=== PATIENT | female | born 1940 | race Caucasian/White ===

== ENCOUNTER 2020-10-18 12:43 | Inpatient (IN) | payer BC, SELFPAY ==
[~2020-10-18] VITALS: Ht 154.9 cm; Wt 86.2 kg
[2020-10-18 12:43] VITALS: BP_SYST 108
--- NOTE | 2020-10-18 12:45 | NUR ---
Patient to ER bed 08 to gown for evaluation. Side rails up.
--- NOTE | 2020-10-18 12:50 | NUR ---
Pt brought by family, A&Ox4, pt presents to ER with SOB after exposure to covid, pt O2 86 % roomair, skin pink and warm, cap refill <3. respirations even and unlabored.
--- NOTE | 2020-10-18 12:55 | NUR ---
Dr Zepeda evaluating patient at bedside
[2020-10-18 13:48] LABS: BASOPHILS % (AUTO) 0.3 % (0.0-2.0); HEMATOCRIT 40.5 % (36-48); LYMPHOCYTES # (AUTO) 0.7 K/uL (1.0-5.5); MEAN CORPUSCULAR HEMOGLOBIN 33 pg (27-31); MEAN CORPUSCULAR HGB CONC 35 % (32-36); MEAN CORPUSCULAR VOLUME 94 fL (79.0-98.0); MONOCYTES # (AUTO) 0.6 K/uL (0.0-1.0); MONOCYTES % (AUTO) 10.2 % (1.7-9.3); NEUTROPHILS # (AUTO) 4.3 K/uL (1.8-7.7); NEUTROPHILS % (AUTO) 76.5 % (40.0-70.0); PLATELET COUNT (AUTO) 124 K/uL (130-430); RED BLOOD CELL COUNT(AUTO) 4.29 MIL/uL (4.2-6.2); RED CELL DISTRIBUTION WIDTH 13.1 % (9.0-15.0); WHITE BLOOD COUNT (AUTO) 5.7 K/uL (4.8-10.8)
[2020-10-18 13:49] LABS: ALANINE AMINOTRANSFERASE 22 U/L (12-78); ALBUMIN 2.9 g/dL (3.4-4.8); ASPARTATE AMINOTRANSFERASE 28 U/L (10-37); CALCIUM 9.3 mg/dL (8.4-11.0); CHLORIDE 99 mmol/L (98-107); CREATININE 0.74 mg/dL (0.55-1.30); GLUCOSE 109 mg/dL (70-99); POTASSIUM 3.3 mmol/L (3.5-5.1); SODIUM SERUM 135 mmol/L (136-145); TOTAL BILIRUBIN 0.7 mg/dL (0.0-1.0); UREA NITROGEN, BLOOD 24 mg/dL (8-21)
[2020-10-18 13:55] LABS: ANION GAP 7 (5-15)
[2020-10-18 14:42] LABS: BILIRUBIN,URINE NEGATIVE (NEGATIVE); BLOOD, URINE NEGATIVE (NEGATIVE); COLOR,URINE YELLOW (YELLOW); GLUCOSE,URINE NEGATIVE (NEGATIVE); KETONES,URINE 2+ (NEGATIVE); LEUKOCYTE ESTERASE ,URINE NEGATIVE (NEGATIVE); NITRITE, URINE POSITIVE (NEGATIVE); PROTEIN URINE NEGATIVE (NEGATIVE)
[2020-10-18 14:45] LABS: CLARITY/URINE HAZY (CLEAR)
[2020-10-18] MEDS ORDERED: DEXAMETHASONE SOD PHOSPHATE 10 MG/ML VIAL IVP ONE (14:45)
[2020-10-18] MEDS ORDERED: ALBUTEROL SULFATE 0.083% 2.5 MG/3 ML VIAL.NEB INH PRN (14:45)
[2020-10-18 15:17] LABS: BACTERIA,URINE MANY /HPF (None Seen); RBC,URINE 0-3 /HPF (0-3)
--- NOTE | 2020-10-18 15:30 | NUR ---
Pt A&Ox4, VSS, respirations even and unlabored, cap refill <3 , O2 92 % 4 L NC
[2020-10-18] MEDS ORDERED: AZITHROMYCIN 500 MG in NS 250 ML IV ONE (16:15)
[2020-10-18] MEDS ORDERED: ENOXAPARIN SODIUM 30 MG/0.3 ML SYRINGE SUBCUT ONE (16:15)
--- NOTE | 2020-10-18 16:28 | NUR ---
Dr Oneil evaluating patient at bedside
[2020-10-18] MEDS ORDERED: AZITHROMYCIN 500 MG/VIAL (ZITHROMAX) IV ONE (16:39)
[2020-10-18] MEDS ORDERED: ENOXAPARIN SODIUM 30 MG/0.3 ML SYRINGE SUBCUT SCH (17:45)
--- NOTE | 2020-10-18 17:50 | NUR ---
Pt ambulated to [facility] pt had one bowell movement at this time, watery brown stool, will cont to monitor
[2020-10-18] MEDS: cefTRIAXone 1 GM IVPB PREMIX 50 ML IV SCH (18:22)
--- NOTE | 2020-10-18 18:30 | NUR ---
Pt eating dinner at this time, well tolerated
--- NOTE | 2020-10-18 19:04 | NUR ---
CONSULTATION PAGED/CALLED Reason for Consultation: [] COVID PNA Person Who was Notified: [] SOCORRO Consulting Physician: [] DR SALDIVAR Paperboard Machine Operator Specialty: [] ID Ordering Physician: [] DR GARCIA
--- NOTE | 2020-10-18 19:07 | NUR ---
CONSULTATION PAGED/CALLED Reason for Consultation: [] COVID PNA Person Who was Notified: [] DR LLANOS Consulting Physician: [] DR LLANOS Cap And Hat Production Supervisor Specialty: [] PULMO Ordering Physician: [] DR GARCIA
--- NOTE | 2020-10-18 19:25 | NUR ---
Pt just finished dinner tray, VSS no s/s of acute distress Resting on gurney rails up. Pt states " she's awaiting bed assignment "
--- NOTE | 2020-10-18 19:44 | NUR ---
SPOKE TO DR. SCHWAB REGARDING LOVENOX. OK TO HOLD LOVENOX 40 MG AND TO START IN AM. ORDER PLACED IN SYSTEM
[2020-10-18 20:00] VITALS: BP_SYST 112
--- NOTE | 2020-10-18 20:00 | NUR ---
Patient will be admitted to care of Dr. Caraballo. Admitted to Tele unit. Will go to room 134A. Belongings list completed. Complete and up to date summary report printed. SBAR report to be given at bedside with opportunity for questions.
--- NOTE | 2020-10-18 20:00 | NUR ---
ADMIT NOTE Received pt from ER to the floor with a diagnosis of Covid PNA. Admission process initiated. patient oriented to pain management, safety and call light-teach back done.
--- NOTE | 2020-10-18 20:00 | NUR ---
Transfer to Tele via ACLS protocol. Licensed nurse present. IV present no signs or symptoms of infiltration.
[2020-10-18 20:05] VITALS: BP_SYST 123
[2020-10-18] MEDS: ASCORBIC ACID 500 MG TABLET PO SCH (21:22)
[2020-10-18] MEDS: DOXYCYCLINE HYCLATE 100 MG CAPSULE PO SCH (21:22)
[2020-10-19 00:26] VITALS: BP_SYST 122
[2020-10-19 01:01] VITALS: BP_SYST 124
--- NOTE | 2020-10-19 02:37 | NUR ---
Maritza on telemonitor radio electronics technician informed patient is maritza; HR 40's, she has been maritza HR 50's. Presently patient is sleeping, no distress. Momentarily awakened and she denies pain. wctm
[2020-10-19 07:26] LABS: ALANINE AMINOTRANSFERASE 27 U/L (12-78); ALBUMIN 2.6 g/dL (3.4-4.8); ANION GAP 11 (5-15); ASPARTATE AMINOTRANSFERASE 37 U/L (10-37); CALCIUM 9.4 mg/dL (8.4-11.0); CHLORIDE 97 mmol/L (98-107); CREATININE 0.61 mg/dL (0.55-1.30); GLUCOSE 130 mg/dL (70-99); POTASSIUM 3.4 mmol/L (3.5-5.1); SODIUM SERUM 133 mmol/L (136-145); TOTAL BILIRUBIN 0.5 mg/dL (0.0-1.0); UREA NITROGEN, BLOOD 19 mg/dL (8-21)
[2020-10-19 08:00] VITALS: BP_SYST 136
--- NOTE | 2020-10-19 08:00 | NUR ---
awake,alert,bradycardia hr 55,no c/o pain or discomfort.O2 sat 84% on room air,applied on O2 4L/NC sat up to 93%,needs attended,call light & personal items within pt reach,safety maintained.
[2020-10-19] MEDS: BUDESONIDE 0.5 MG/2 ML AMPUL.NEB INH SCH (08:51)
[2020-10-19] MEDS ORDERED: ENOXAPARIN SODIUM 30 MG/0.3 ML SYRINGE SUBCUT SCH (09:00)
--- NOTE | 2020-10-19 10:00 | NUR ---
give am meds due,pt is compliant of meds.continue droplet isolation protocol due to covid positive.
[2020-10-19] MEDS: ENOXAPARIN SODIUM 40 MG/0.4 ML SYRINGE SUBCUT SCH ×2 (10:31→20:49)
[2020-10-19] MEDS: CHOLECALCIFEROL (VITAMIN D3) 5,000 UNIT TABLET PO SCH (11:06)
[2020-10-19] MEDS: ASCORBIC ACID 500 MG TABLET PO SCH ×2 (11:06→20:48)
[2020-10-19] MEDS: DOXYCYCLINE HYCLATE 100 MG CAPSULE PO SCH ×2 (11:06→20:49)
[2020-10-19] MEDS: DEXAMETHASONE SOD PHOSPHATE 10 MG/ML VIAL IVP SCH (11:07)
[2020-10-19 12:00] VITALS: BP_SYST 136
--- NOTE | 2020-10-19 12:00 | NUR ---
vss,pt wearing O2 4L/NC,sat 93%,respirates even and unlabored.continue to monitor pt.
[2020-10-19 16:00] VITALS: BP_SYST 127
--- NOTE | 2020-10-19 16:00 | NUR ---
vss,pt resting well in bed,no significant changes in status.
--- NOTE | 2020-10-19 18:00 | NUR ---
give IV antibiotic due,no adverse reactions observed,IV site in left hand patent and intact.
[2020-10-19] MEDS: cefTRIAXone 1 GM IVPB PREMIX 50 ML IV SCH (18:02)
--- NOTE | 2020-10-19 19:30 | NUR ---
Opening note Received SBAR report from PARTHA Pereira. Patient resting in bed, eyes closed. No distress and nonlabored breathing on 4L NC. Side rails up 2x, bed alarm on and call light w/in reach.
[2020-10-19 20:15] VITALS: BP_SYST 112
[2020-10-19] MEDS: ALBUTEROL MDI INHALATION 8 GM INH INH PRN (21:33)
--- NOTE | 2020-10-19 21:33 | NUR ---
Meds/Patient care Patient was given due medications. Reviewed side effects and she verbalized understanding. She was assisted to restroom and returned to bed. She was provided with new sheet, gown and disposable underwear. Administered MDI breathing treatment. Resting in comfortable position and has no further needs.
[2020-10-20 00:25] VITALS: BP_SYST 108
--- NOTE | 2020-10-20 00:25 | NUR ---
V/S VSS, no distress. Patient denies pain. Presently IV is SL. Safety and isolation precautions in place.
--- NOTE | 2020-10-20 03:05 | NUR ---
sleeping Patient sleeping and momentarily awakened for battery replacement on tele box.
[2020-10-20 06:37] LABS: BASOPHILS % (AUTO) 0.1 % (0.0-2.0); HEMATOCRIT 41.3 % (36-48); HEMOGLOBIN 14.1 g/dL (12.0-16.0); LYMPHOCYTES # (AUTO) 0.9 K/uL (1.0-5.5); LYMPHOCYTES % (AUTO) 14.5 % (20.5-51.5); MEAN CORPUSCULAR HEMOGLOBIN 32 pg (27-31); MEAN CORPUSCULAR HGB CONC 34 % (32-36); MEAN CORPUSCULAR VOLUME 95 fL (79.0-98.0); MONOCYTES # (AUTO) 0.6 K/uL (0.0-1.0); MONOCYTES % (AUTO) 9.4 % (1.7-9.3); NEUTROPHILS # (AUTO) 4.9 K/uL (1.8-7.7); PLATELET COUNT (AUTO) 143 K/uL (130-430); RED BLOOD CELL COUNT(AUTO) 4.36 MIL/uL (4.2-6.2); RED CELL DISTRIBUTION WIDTH 12.9 % (9.0-15.0); WHITE BLOOD COUNT (AUTO) 6.4 K/uL (4.8-10.8)
[2020-10-20 07:14] LABS: ALANINE AMINOTRANSFERASE 27 U/L (12-78); ALBUMIN 2.5 g/dL (3.4-4.8); ANION GAP 9 (5-15); ASPARTATE AMINOTRANSFERASE 25 U/L (10-37); CALCIUM 9.4 mg/dL (8.4-11.0); CHLORIDE 103 mmol/L (98-107); CREATININE 0.64 mg/dL (0.55-1.30); GLUCOSE 131 mg/dL (70-99); POTASSIUM 3.5 mmol/L (3.5-5.1); SODIUM SERUM 139 mmol/L (136-145); TOTAL BILIRUBIN 0.3 mg/dL (0.0-1.0); UREA NITROGEN, BLOOD 24 mg/dL (8-21)
[2020-10-20 08:00] VITALS: BP_SYST 109
--- NOTE | 2020-10-20 08:00 | NUR ---
NURSE NOTES REPORT OBTAINED FROM NIGHT NURSE DAYTON AT 0710 AND THIS NURSE ASSUMED CARE OF PATIENT. IN DROPLET ISOLATION FROM COVID. VSS. AFEB. NO C/O PAIN OR DISCOMFORT.
[2020-10-20 08:38] LABS: ERYTHROCYTE SEDIMENTATION RATE 56 MM/HR (0-20)
[2020-10-20] MEDS: BUDESONIDE 0.5 MG/2 ML AMPUL.NEB INH SCH (09:00)
[2020-10-20] MEDS: DEXAMETHASONE SOD PHOSPHATE 10 MG/ML VIAL IVP SCH (09:52)
[2020-10-20] MEDS: DOXYCYCLINE HYCLATE 100 MG CAPSULE PO SCH ×2 (09:52→20:26)
[2020-10-20] MEDS: ASCORBIC ACID 500 MG TABLET PO SCH ×2 (09:52→20:26)
[2020-10-20] MEDS: CHOLECALCIFEROL (VITAMIN D3) 5,000 UNIT TABLET PO SCH (09:53)
[2020-10-20] MEDS: ENOXAPARIN SODIUM 40 MG/0.4 ML SYRINGE SUBCUT SCH ×2 (10:00→20:27)
--- NOTE | 2020-10-20 10:58 | NUR ---
Nutrition Update Volodymyr Scale 18 noted. Pt admitted for COVID pneumonia. Diet: regular BMI: 36 kg/m2 RD to follow per nutrition care standards.
[2020-10-20] MEDS ORDERED: DILTIAZEM HCL 25 MG/5 ML VIAL IVP ONE (11:00)
[2020-10-20 11:36] LABS: C-REACTIVE PROTEIN QUANT 10.2 mg/dL (0-0.5)
[2020-10-20 12:00] VITALS: BP_SYST 115; BP_SYST 97
--- NOTE | 2020-10-20 12:00 | NUR ---
NURSE CARE HR JUDSON. NO C/O PAIN, DISTRESS,OR DIZZINESS. MEALS TAKEN 50%. SLEEPING THRU THE DAY.
[2020-10-20 16:00] VITALS: BP_SYST 110
[2020-10-20] MEDS: cefTRIAXone 1 GM IVPB PREMIX 50 ML IV SCH (18:00)
--- NOTE | 2020-10-20 18:00 | NUR ---
NURSE NOTES PATIENT RECEIVED IVPB ROCEPHIN AND REMDESMIR THRU SL IN L HAND. NO REDNESS OR SWELLING.
--- NOTE | 2020-10-20 19:15 | NUR ---
NURSE REPORT AND ENDORSEMENT REPORT GIVEN TO NIGHT NURSE PAN TO ASSUMED CARE OF PATIENT. STABLE CONDITION. SBAR GIVEN TO HER AND ALL QUESTIONS ASKED.
--- NOTE | 2020-10-20 19:30 | NUR ---
Opening note Received SBAR report from PARTHA Hay. Patient resting in bed, awake. No distress and nonlabored breathing on 4L NC. Side rails up 2x, bed alarm on and call light w/in reach.
[2020-10-20 20:00] VITALS: BP_SYST 111
--- NOTE | 2020-10-20 20:26 | NUR ---
Meds/Patient care Patient was given due medications. Reviewed side effects and she verbalized understanding.
--- NOTE | 2020-10-20 20:40 | NUR ---
MDI RT at bedside for tx
[2020-10-20] MEDS: ALBUTEROL MDI INHALATION 8 GM INH INH PRN (20:51)
[2020-10-21 00:20] VITALS: BP_SYST 108
--- NOTE | 2020-10-21 00:30 | NUR ---
V/S Sleeping and momentarily awakened for V/S. She ambulated to restroom and returned to bed, denies pain.
--- NOTE | 2020-10-21 03:10 | NUR ---
Bradycardia Patient is sinus maritza, and groundwater monitoring technician reports HR has been dropping to 40's and was 38/39 a couple times. Patient assessed and she denies pain or dizziness. She was asleep and has no distress, wctm
[2020-10-21 07:00] VITALS: BP_SYST 90
[2020-10-21 07:18] LABS: BASOPHILS % (AUTO) 0.2 % (0.0-2.0); HEMOGLOBIN 14.1 g/dL (12.0-16.0); LYMPHOCYTES # (AUTO) 1.1 K/uL (1.0-5.5); LYMPHOCYTES % (AUTO) 15.3 % (20.5-51.5); MEAN CORPUSCULAR HEMOGLOBIN 32 pg (27-31); MEAN CORPUSCULAR HGB CONC 34 % (32-36); MEAN CORPUSCULAR VOLUME 94 fL (79.0-98.0); MONOCYTES # (AUTO) 0.6 K/uL (0.0-1.0); MONOCYTES % (AUTO) 9.2 % (1.7-9.3); NEUTROPHILS # (AUTO) 5.2 K/uL (1.8-7.7); NEUTROPHILS % (AUTO) 75.3 % (40.0-70.0); PLATELET COUNT (AUTO) 157 K/uL (130-430); RED BLOOD CELL COUNT(AUTO) 4.35 MIL/uL (4.2-6.2); RED CELL DISTRIBUTION WIDTH 12.8 % (9.0-15.0); WHITE BLOOD COUNT (AUTO) 6.9 K/uL (4.8-10.8)
[2020-10-21 07:49] LABS: ALANINE AMINOTRANSFERASE 19 U/L (12-78); ALBUMIN 2.4 g/dL (3.4-4.8); ANION GAP 9 (5-15); ASPARTATE AMINOTRANSFERASE 20 U/L (10-37); C-REACTIVE PROTEIN QUANT 5.4 mg/dL (0-0.5); CALCIUM 9.5 mg/dL (8.4-11.0); CHLORIDE 101 mmol/L (98-107); CREATININE 0.59 mg/dL (0.55-1.30); GLUCOSE 126 mg/dL (70-99); POTASSIUM 3.3 mmol/L (3.5-5.1); SODIUM SERUM 136 mmol/L (136-145); TOTAL BILIRUBIN 0.4 mg/dL (0.0-1.0); UREA NITROGEN, BLOOD 22 mg/dL (8-21)
--- NOTE | 2020-10-21 08:00 | NUR ---
NURSE REPORT REPORT OBTAINED FROM DAYTON AT 0730 AND THIS NURSE ASSUMED OF PATIENT. RECEIVED PATIENT ASLEEP AND WITHOUT ANY SXS OF PAIN OR DISTRESS. ON DROPLET PRECAUTIONS FOR COVID. PATIENT STATED SHE FEEL FIND. BUT O2 SAT ON RA 85%. INSTRUCTED THAT SHE NEEDS TO WEAR O2. INCREASED TO 91%.
[2020-10-21] MEDS: BUDESONIDE 0.5 MG/2 ML AMPUL.NEB INH SCH ×2 (09:00→19:50)
[2020-10-21] MEDS: ALBUTEROL MDI INHALATION 8 GM INH INH PRN (09:25)
[2020-10-21] MEDS: ASCORBIC ACID 500 MG TABLET PO SCH ×2 (09:28→22:07)
[2020-10-21] MEDS: DOXYCYCLINE HYCLATE 100 MG CAPSULE PO SCH ×2 (09:29→22:07)
[2020-10-21] MEDS: DEXAMETHASONE SOD PHOSPHATE 10 MG/ML VIAL IVP SCH (09:29)
[2020-10-21] MEDS: CHOLECALCIFEROL (VITAMIN D3) 5,000 UNIT TABLET PO SCH (09:29)
[2020-10-21] MEDS: ENOXAPARIN SODIUM 40 MG/0.4 ML SYRINGE SUBCUT SCH ×2 (09:31→22:08)
[2020-10-21 10:02] LABS: ERYTHROCYTE SEDIMENTATION RATE 46 MM/HR (0-20)
[2020-10-21 11:03] VITALS: BP_SYST 108
--- NOTE | 2020-10-21 11:45 | NUR ---
Dietitian Recommendations * Recommend continue regular diet (keep liberal to promote PO intake). * Recommend: add Glucerna TID. (ONS will provide additional 660 kcal and 30gm protein daily). * Encourage PO intake. * Nursing: please document all PO intake. Please see Nutritional Assessment for details. HELENA GRIJALVA
[2020-10-21 12:00] VITALS: BP_SYST 116
--- NOTE | 2020-10-21 12:00 | NUR ---
NURSE CARE VS TAKEN. AFEB. HR 51. NO C/O PAIN, DISCOMFORT OR DIZZINESS. MEALS TAKEN 50%. GOT UP TO BATHROOM BY HERSELF AND SELF CARE DONE.
[2020-10-21 16:00] VITALS: BP_SYST 137
[2020-10-21] MEDS: cefTRIAXone 1 GM IVPB PREMIX 50 ML IV SCH (17:32)
--- NOTE | 2020-10-21 18:00 | NUR ---
NURSE CARE VS TAKEN. HR 51. NO C/O PAIN, DISCOMFORT OR DIZZINESS. IVPB REMDESIVIR AND ROCEPHIN GIVEN. SL IN L HAND 20 G AND R FINGER 22 G. NO REDNESS OR SWELLING.
--- NOTE | 2020-10-21 19:10 | NUR ---
NURSE REPORT AND ENDORSEMENT REPORT GIVEN TO NIGHT NURSE MAGALI TO ASSUME CARE OF PATIENT. SBAR GIVEN AND ALL QUESTIONS ASKED. IVPB REMDISIMIR INFUSING AND NEEDS ROCEPHIN TO BE STARTED.
--- NOTE | 2020-10-21 19:30 | NUR ---
Opening note Received SBAR report from dayshift RN. Patient resting in bed, eyes closed. No distress and nonlabored breathing on 4L NC. Side rails up 2x, bed alarm on and call light w/in reach. Will monitor.
[2020-10-21 20:00] VITALS: BP_SYST 128
[2020-10-22 00:15] VITALS: BP_SYST 148
--- NOTE | 2020-10-22 07:10 | NUR ---
CLOSING NOTE PT RESTING IN BED, NO S/S OF DISTRESS, BREATHING UNLABORED TO 4 L. NO REPORT OF PAIN. SAFETY AND ISOLATION PRECAUTIONS MAINTAINED. WILL ENDORSE TO DAY SHIFT RN.
[2020-10-22 08:00] VITALS: BP_SYST 132
--- NOTE | 2020-10-22 08:00 | NUR ---
Initial Note Patient sitting up on side of bed, eating breakfast. Awake and oriented x 4. No acute distress. Saturating 90% on 5 L O2 via N/C. Pain 2/10 reported in mid-back, refuses intervention for pain at this time. Patient able to ambulate and make needs known. Instructed on fall safety precautions. Oriented to and placed call light in reach, encouraged to call. Bed locked in lowest position.
[2020-10-22] MEDS: BUDESONIDE 0.5 MG/2 ML AMPUL.NEB INH SCH ×2 (09:00→21:00)
--- NOTE | 2020-10-22 09:00 | NUR ---
Notes Low lab value potassium noted. Paged Dr. Caraballo.
[2020-10-22 09:32] LABS: ALANINE AMINOTRANSFERASE 24 U/L (12-78); ALBUMIN 2.6 g/dL (3.4-4.8); ANION GAP 8 (5-15); ASPARTATE AMINOTRANSFERASE 17 U/L (10-37); CALCIUM 9.2 mg/dL (8.4-11.0); CHLORIDE 101 mmol/L (98-107); CREATININE 0.61 mg/dL (0.55-1.30); GLUCOSE 163 mg/dL (70-99); POTASSIUM 3.2 mmol/L (3.5-5.1); SODIUM SERUM 137 mmol/L (136-145); TOTAL BILIRUBIN 0.5 mg/dL (0.0-1.0); UREA NITROGEN, BLOOD 21 mg/dL (8-21)
[2020-10-22] MEDS: DEXAMETHASONE SOD PHOSPHATE 10 MG/ML VIAL IVP SCH (09:32)
[2020-10-22] MEDS: ASCORBIC ACID 500 MG TABLET PO SCH ×2 (09:32→21:34)
[2020-10-22] MEDS: DOXYCYCLINE HYCLATE 100 MG CAPSULE PO SCH ×2 (09:33→21:34)
[2020-10-22] MEDS: CHOLECALCIFEROL (VITAMIN D3) 5,000 UNIT TABLET PO SCH (09:33)
[2020-10-22] MEDS: ENOXAPARIN SODIUM 40 MG/0.4 ML SYRINGE SUBCUT SCH ×2 (09:35→21:33)
--- NOTE | 2020-10-22 09:50 | NUR ---
MD Rounds Dr. Caraballo notified of low potassium level.
--- NOTE | 2020-10-22 10:00 | NUR ---
HIGH ALERT NOTE: Angie Caraballo reached at : identified within the medical roster to verify physician authenticity.
[2020-10-22] MEDS ORDERED: POTASSIUM CHLORIDE 20 MEQ TAB.PRT.SR PO ONE (10:30)
--- NOTE | 2020-10-22 12:00 | NUR ---
Notes Assisted patient with ambulating to restroom. Patient able to ambulate with minimal assist out of bed. No distress or pain reported. Assisted patient back into bed and placed call light in reach. Bed in lowest position.
[2020-10-22 12:02] VITALS: BP_SYST 155
--- NOTE | 2020-10-22 12:10 | NUR ---
MD Rounds Dr. Alvarez at bedside to visit patient.
[2020-10-22] MEDS: CEFEPIME 1 GM in D5W 50 ML IV SCH ×2 (14:24→21:32)
[2020-10-22 16:01] VITALS: BP_SYST 144
--- NOTE | 2020-10-22 16:15 | NUR ---
Notes Patient educated on use of incentive spirometer. Patient verbalized understanding and demonstrated use. Assisted with ambulation to restroom and back into bed. Safety measures implemented. Call light in reach, bed in lowest position. Encouraged to call as needed.
--- NOTE | 2020-10-22 18:54 | NUR ---
Closing Note Patient sitting up in bed eating dinner. No distress or pain noted. O2 at 5 L via N/C, saturating 92%. Call light left in reach, bed in lowest position. Patient receiving bag 4/4 of Remdesivir. Will endorse to night nurse.
[2020-10-22 20:00] VITALS: BP_SYST 146
[2020-10-23] VITALS: BP_SYST 128
--- NOTE | 2020-10-23 02:11 | NUR ---
Patient in bed. No acute distress noted. No complaint of pain or discomfort. Will continue to monitor.
[2020-10-23] MEDS: BUDESONIDE 0.5 MG/2 ML AMPUL.NEB INH SCH (08:28)
[2020-10-23 09:00] VITALS: BP_SYST 140
[2020-10-23] MEDS: CEFEPIME 1 GM in D5W 50 ML IV SCH ×2 (09:00→22:07)
[2020-10-23] MEDS: ENOXAPARIN SODIUM 40 MG/0.4 ML SYRINGE SUBCUT SCH ×2 (09:45→20:29)
[2020-10-23] MEDS: DOXYCYCLINE HYCLATE 100 MG CAPSULE PO SCH ×2 (09:46→20:30)
[2020-10-23] MEDS: DEXAMETHASONE SOD PHOSPHATE 10 MG/ML VIAL IVP SCH (09:46)
[2020-10-23] MEDS: ASCORBIC ACID 500 MG TABLET PO SCH ×2 (09:47→20:29)
[2020-10-23] MEDS: CHOLECALCIFEROL (VITAMIN D3) 5,000 UNIT TABLET PO SCH (09:47)
[2020-10-23 15:13] VITALS: BP_SYST 150
[2020-10-23 17:00] VITALS: BP_SYST 138
[2020-10-23 20:00] VITALS: BP_SYST 139
--- NOTE | 2020-10-23 21:00 | NUR ---
2100 IV ANTIBIOTIC YET TO BE GIVEN, PENDING PLACEMENT OF MIDLINE.
[2020-10-23] MEDS: ALBUTEROL MDI INHALATION 8 GM INH INH PRN (21:12)
--- NOTE | 2020-10-23 22:07 | NUR ---
IV CEFEPIME WAS GIVEN IV VIA HUNTER MIDLINE, UTILIZING NEW IV TUBINGS. MIDLINE SITE DRESSING IS DRY AND INTACT.
[2020-10-24] VITALS: BP_SYST 119
--- NOTE | 2020-10-24 06:38 | NUR ---
PT IS RESTING QUIETLY IN BED WITHOUT ANY ACUTE DISTRESS NOTED. ALL PT'S NEEDS WERE ATTENDED TO. WILL ENDORSE TO DAY SHIFT NURSE.
[2020-10-24 08:00] VITALS: BP_SYST 134
--- NOTE | 2020-10-24 08:00 | NUR ---
OPENING NOTES AWAKE, ALERT AND ORIENTED. ON 5 LITERS OF OXYGEN VIA NASAL CANNULA. NO SIGN OF DISTRESS. PICC LINE ON RIGHT UPPER ARM INTACT AND PATENT. FALL AND SAFETY CHECKS IN PLACE. CALL LIGHT WITHIN REACH. WILL MONITOR.
[2020-10-24] MEDS: BUDESONIDE 0.5 MG/2 ML AMPUL.NEB INH SCH (08:44)
[2020-10-24] MEDS: DEXAMETHASONE SOD PHOSPHATE 10 MG/ML VIAL IVP SCH (09:35)
[2020-10-24] MEDS: DOXYCYCLINE HYCLATE 100 MG CAPSULE PO SCH ×2 (09:35→22:22)
[2020-10-24] MEDS: ASCORBIC ACID 500 MG TABLET PO SCH ×2 (09:35→22:22)
[2020-10-24] MEDS: CHOLECALCIFEROL (VITAMIN D3) 5,000 UNIT TABLET PO SCH (09:35)
[2020-10-24] MEDS: CEFEPIME 1 GM in D5W 50 ML IV SCH ×2 (09:36→22:23)
[2020-10-24] MEDS: ENOXAPARIN SODIUM 40 MG/0.4 ML SYRINGE SUBCUT SCH ×2 (09:39→22:23)
--- NOTE | 2020-10-24 09:45 | NUR ---
MED PASS TOOK MEDICATIONS WELL. NO COMPLAINS. SAFETY CHECKS DONE. WILL MONITOR.
[2020-10-24 10:20] LABS: BASOPHILS % (AUTO) 0.3 % (0.0-2.0); EOSINOPHILS # (AUTO) 0.1 K/uL (0.0-0.4); EOSINOPHILS % (AUTO) 0.8 % (0.0-4.0); HEMATOCRIT 41.5 % (36-48); HEMOGLOBIN 14.3 g/dL (12.0-16.0); LYMPHOCYTES # (AUTO) 1.5 K/uL (1.0-5.5); LYMPHOCYTES % (AUTO) 16.7 % (20.5-51.5); MEAN CORPUSCULAR HEMOGLOBIN 33 pg (27-31); MEAN CORPUSCULAR HGB CONC 35 % (32-36); MEAN CORPUSCULAR VOLUME 94 fL (79.0-98.0); MONOCYTES # (AUTO) 0.8 K/uL (0.0-1.0); NEUTROPHILS # (AUTO) 6.5 K/uL (1.8-7.7); NEUTROPHILS % (AUTO) 73.2 % (40.0-70.0); PLATELET COUNT (AUTO) 216 K/uL (130-430); WHITE BLOOD COUNT (AUTO) 8.8 K/uL (4.8-10.8)
[2020-10-24 10:34] LABS: ANION GAP 8 (5-15); CALCIUM 9.2 mg/dL (8.4-11.0); CHLORIDE 104 mmol/L (98-107); CREATININE 0.96 mg/dL (0.55-1.30); GLUCOSE 153 mg/dL (70-99); POTASSIUM 3.2 mmol/L (3.5-5.1); SODIUM SERUM 138 mmol/L (136-145); UREA NITROGEN, BLOOD 19 mg/dL (8-21)
[2020-10-24 10:41] LABS: ALANINE AMINOTRANSFERASE 24 U/L (12-78); ALBUMIN 2.6 g/dL (3.4-4.8); ASPARTATE AMINOTRANSFERASE 14 U/L (10-37); TOTAL BILIRUBIN 0.5 mg/dL (0.0-1.0)
[2020-10-24 12:11] VITALS: BP_SYST 134
--- NOTE | 2020-10-24 13:00 | NUR ---
ROUNDS RESTING. NO SIGN OF DISTRESS. CALL LIGHT WITHIN REACH.
--- NOTE | 2020-10-24 15:00 | NUR ---
CALLED FAMILY WAS ABLE TO TALK TO PATIENT'S GRAND-DAUGHTER. BEDSIDE PHONE FIXED.
[2020-10-24 16:27] VITALS: BP_SYST 106
--- NOTE | 2020-10-24 16:30 | NUR ---
CALLED FAMILY WAS ABLE TO TALK TO PATIENT'S DAUGHTER, JOSIE. WAS UPDATED WITH PLAN OF CARE FOR PATIENT. SAFETY CHECKS DONE. WILL MONITOR.
--- NOTE | 2020-10-24 18:32 | NUR ---
CLOSING NOTES RESTING. NO SIGN OF DISTRESS. ALL NEEDS MET. FALL AND SAFETY CHECKS DONE. CALL LIGHT WITHIN REACH. WILL ENDORSE TO NIGHT NURSE.
--- NOTE | 2020-10-24 19:20 | NUR ---
OPENING NOTES PATIENT RESTING, NO SIGNS OF ACUTE RESPIRATORY DISTRESS NOTED,RESTING ON THE SIDE. CALL LIGHT WITHIN REACH, BED ALARM ON, PATIENT DEMONSTRATES PROPER CALL LIGHT USAGE AND BED AT LOWEST POSITION, BED LOCKED. PLAN OF CARE DISCUSSED WITH PATIENT. SAFETY, RESPIRATORY, ASPIRATION, FALL, AND ISOLATION PRECAUTIONS IN PLACE. WILL CONTINUE TO MONITOR.
[2020-10-24 20:00] VITALS: BP_SYST 126
--- NOTE | 2020-10-24 22:00 | NUR ---
PATIENT AMBULATES WITH RESTROOM WITH STEADY GAIT, NO SIGNS OF DISTRESS NOTED WHEN BACK TO BED. WILL CONTINUE TO MONITOR.
[2020-10-25 02:15] VITALS: BP_SYST 138
--- NOTE | 2020-10-25 02:39 | NUR ---
PATIENT RESTING, NO SIGNS OF DISTRESS NOTED. WILL CONTINUE TO MONITOR.
--- NOTE | 2020-10-25 07:29 | NUR ---
CLOSING NOTES PATIENT RESTING, NO SIGNS OF ACUTE RESPIRATORY DISTRESS NOTED,RESTING ON THE SIDE. CALL LIGHT WITHIN REACH, BED ALARM ON, PATIENT DEMONSTRATED PROPER CALL LIGHT USAGE AND BED AT LOWEST POSITION, BED LOCKED. SAFETY, RESPIRATORY, ASPIRATION, FALL, AND ISOLATION PRECAUTIONS IN PLACE. ALL NEEDS MET THROUGHOUT SHIFT. WILL ENDORSE CARE TO ONCOMING SHIFT.
[2020-10-25] MEDS: BUDESONIDE 0.5 MG/2 ML AMPUL.NEB INH SCH (07:40)
--- NOTE | 2020-10-25 08:00 | NUR ---
OPENING NOTES PATIENT RESTING IN BED. BREATHING EVEN AND NON LABORED TO O2 AT 5L/NC. HUNTER MIDLINE, PATENT AND INFUSING WELL. FALL, SAFETY AND ASPIRATION PRECAUTION REINFORCED. CALL LIGHT WITH REACH.
[2020-10-25] MEDS: ASCORBIC ACID 500 MG TABLET PO SCH ×2 (09:52→21:17)
[2020-10-25] MEDS: CHOLECALCIFEROL (VITAMIN D3) 5,000 UNIT TABLET PO SCH (09:52)
[2020-10-25] MEDS: DEXAMETHASONE SOD PHOSPHATE 10 MG/ML VIAL IVP SCH (09:53)
[2020-10-25] MEDS: CEFEPIME 1 GM in D5W 50 ML IV SCH ×2 (09:54→21:18)
[2020-10-25] MEDS: ENOXAPARIN SODIUM 40 MG/0.4 ML SYRINGE SUBCUT SCH ×2 (09:55→21:16)
[2020-10-25 10:10] VITALS: BP_SYST 136
--- NOTE | 2020-10-25 12:05 | NUR ---
RN NOTES: PATIENT RESTING IN BED. NO SIGNS OF ACUTE DISTRESS NOTED. FALL AND SAFETY MEASURES RENDERED. CALL LIGHT WITHIN REACH.
[2020-10-25 12:30] VITALS: BP_SYST 128
[2020-10-25 17:51] VITALS: BP_SYST 132
--- NOTE | 2020-10-25 18:56 | NUR ---
CLOSING NOTES: PATIENT EATING DINNER. NO SIGNS OF ACUTE DISTRESS NOTED. FALL AND SAFETY MEASURES RENDERED. CALL LIGHT WITHIN REACH. WILL CONTINUE MONITOR UNTIL ENDORSE TO ELECTRICIAN RADIO RN.
--- NOTE | 2020-10-25 19:30 | NUR ---
OPENING NOTES: Received report from dayshift nurse. Patient is resting in bed, alert and oriented. She is 3L O2 via NC, tolerating well. Midline noted on right upper arm with dry and intact dressing. Ensured all safety precautions. Bed is locked and in the lowest position. Call light within reach.
[2020-10-25 20:00] VITALS: BP_SYST 124
--- NOTE | 2020-10-25 21:15 | NUR ---
MEDICATION ADMINISTRATION: ADMINISTERED MEDS ORDERED BY . PT TOLERATED WELL.
--- NOTE | 2020-10-25 23:30 | NUR ---
PT CALLED USING THE BATHROOM CALL LIGHT. UPON ENTERING THE ROOM, I FOUND THE PATIENT SITTING ON THE BATHROOM FLOOR. PATIENT WAS ALERT AND ORIENTED AND STATES HER LEGS BECAME WEEK WHEN SHE GOT OFF THE TOILET AND SHE SAT ON THE FLOOR. PATIENT DECLINED ANY TRAUMA OR INJURY HOWEVER SHE ALSO PULLED HER MIDLINE. I RESTARTED AN IV ON HER RIGHT FOREARM 20 G.
[2020-10-26] VITALS: BP_SYST 118
--- NOTE | 2020-10-26 07:35 | NUR ---
OPENING NOTES PATIENT AAOX 3-4. LUNGS BILATERALLY CLEAR BUT DIMINISHED AT THE BASES. ABDOMEN SOFT AND NON DISTENDED AND HAS UNSTEADY GAIT. USES THE WALKER WITH ASSIST TO THE BATHROOM. CALL LIGHTS WITHIN REACH. BED LOW POSITION, ALARMED AND LOCKED. WILL CONTINUE TO MONITOR PATIENTS STATUS.
--- NOTE | 2020-10-26 07:43 | NUR ---
PAGED DR. AKHTAR (ECONOMIC DEVELOPMENT DIRECTOR FOR DR. GARCIA) TO INFORM HIM REGARDING PT'S FALL
--- NOTE | 2020-10-26 07:51 | NUR ---
CLOSING NOTES: Patient is resting in bed, alert and oriented. She is on 2L NC, tolerating well. Patient has 20 G IV on right forearm with dry and intact dressing. Patient does not have any c/o and is not exhibiting any s/s of distress or discomfort. I assisted patient to the bathroom. She is appears to be unsteady. I reminded patient to use the call light for assistance when getting up to the bathroom, she verbalized understanding. Ensured all safety precautions. Bed is locked and in the lowest position with alarm on, call light within reach. All needs were met throughout shift. I have endorsed to dayshift nurse.
[2020-10-26] MEDS: CEFEPIME 1 GM in D5W 50 ML IV SCH ×2 (09:24→21:51)
[2020-10-26] MEDS: ENOXAPARIN SODIUM 40 MG/0.4 ML SYRINGE SUBCUT SCH ×2 (09:30→21:52)
[2020-10-26] MEDS: DEXAMETHASONE SOD PHOSPHATE 10 MG/ML VIAL IVP SCH (09:30)
[2020-10-26] MEDS: ASCORBIC ACID 500 MG TABLET PO SCH ×2 (09:31→21:50)
[2020-10-26] MEDS: CHOLECALCIFEROL (VITAMIN D3) 5,000 UNIT TABLET PO SCH (09:31)
[2020-10-26 09:38] VITALS: BP_SYST 116
[2020-10-26 12:00] VITALS: BP_SYST 117
--- NOTE | 2020-10-26 14:44 | NUR ---
Case mgt: I faxed dcp orders to HCP at [phone] with face sheet, meds,RT notes--LIMA RN
--- NOTE | 2020-10-26 15:24 | NUR ---
FOLLOWED UP WITH HCP/[facility] SINCERE ROBERTO FOR HOME O2 AND HOME PT. WILL FOLLOW UP TOMORROW.
--- NOTE | 2020-10-26 15:45 | NUR ---
DR MOE CAME AND VERBALIZED CAN GO HOME. IF OXYGEN SATURATION IS GOOD. BUT NOT. OXYGEN SAT ON 5 LIERS. 92% AND 3 LITERS 88%. DYSPNIA ON EXERTION NOTED.
--- NOTE | 2020-10-26 15:50 | NUR ---
ASSISTED TO THE BATHROOM WITH THE WALKER AND UNSTEADY.
[2020-10-26 16:00] VITALS: BP_SYST 115
--- NOTE | 2020-10-26 16:00 | NUR ---
87% on 3 liter nasal cannula and 92% on 5 liters of oxygen via nc.
--- NOTE | 2020-10-26 17:17 | NUR ---
91 o2 sat on 5lnc. on 3 liters 87%
--- NOTE | 2020-10-26 17:39 | NUR ---
ABLE TO TAKE ZINC SULFATE WHILE WATCHING TV. AND SPOKE TO THE DAUGHTER JOSIE REGARDING UPDATES ON MOM CONDITION.
--- NOTE | 2020-10-26 19:30 | NUR ---
OPENING NOTES: Received report from dayshift nurse. Patient is resting in bed, alert and oriented. She has IV on right forearm, 20 g with dry and intact dressing. Patient is on 3L NC with unlabored breathing and tolerating well. Ensured all safety precautions. Bed is locked and in the lowest position with alarm on and call light within reach.
[2020-10-26 20:00] VITALS: BP_SYST 117
[2020-10-27 00:12] VITALS: BP_SYST 121
[2020-10-27 07:47] VITALS: BP_SYST 140
--- NOTE | 2020-10-27 07:49 | NUR ---
opening notes patient aaox 4. lungs bilaterally clear. abdomen soft and non distended. no sob noted. vitals signs stable. afebrile O2 Sat 90% on 5 licer via nasal cannula. call lights within reach. bed low position, alarmed and locked. has walker informed patient to call for assistance. will continue to monitor patients status.
[2020-10-27 08:12] LABS: BASOPHILS % (AUTO) 0.1 % (0.0-2.0); EOSINOPHILS % (AUTO) 0.1 % (0.0-4.0); HEMATOCRIT 41.9 % (36-48); HEMOGLOBIN 14.3 g/dL (12.0-16.0); LYMPHOCYTES # (AUTO) 1.6 K/uL (1.0-5.5); LYMPHOCYTES % (AUTO) 16.2 % (20.5-51.5); MEAN CORPUSCULAR HEMOGLOBIN 33 pg (27-31); MEAN CORPUSCULAR HGB CONC 34 % (32-36); MEAN CORPUSCULAR VOLUME 96 fL (79.0-98.0); MONOCYTES # (AUTO) 0.7 K/uL (0.0-1.0); MONOCYTES % (AUTO) 7.3 % (1.7-9.3); NEUTROPHILS # (AUTO) 7.6 K/uL (1.8-7.7); NEUTROPHILS % (AUTO) 76.3 % (40.0-70.0); PLATELET COUNT (AUTO) 272 K/uL (130-430); RED BLOOD CELL COUNT(AUTO) 4.38 MIL/uL (4.2-6.2); RED CELL DISTRIBUTION WIDTH 13.2 % (9.0-15.0); WHITE BLOOD COUNT (AUTO) 9.9 K/uL (4.8-10.8)
[2020-10-27] MEDS: CEFEPIME 1 GM in D5W 50 ML IV SCH (08:26)
[2020-10-27] MEDS: DEXAMETHASONE SOD PHOSPHATE 10 MG/ML VIAL IVP SCH (08:27)
[2020-10-27] MEDS: ENOXAPARIN SODIUM 40 MG/0.4 ML SYRINGE SUBCUT SCH (08:27)
[2020-10-27] MEDS: ASCORBIC ACID 500 MG TABLET PO SCH (08:27)
[2020-10-27] MEDS: CHOLECALCIFEROL (VITAMIN D3) 5,000 UNIT TABLET PO SCH (08:28)
--- NOTE | 2020-10-27 08:42 | NUR ---
CLOSING NOTES: Patient is resting in bed, alert and oriented. I assisted patient to the bathroom. She is using walker with and is not exhibiting any difficulties. Patient states she feels stronger this morning. 20 g IV on right forearm, with dry and intact dressing. Patient is on 3L NC with unlabored breathing and tolerating well. Ensured all safety precautions. Bed is locked and in the lowest position with alarm on and call light within reach. All needs were met throughout shift. I have endorsed to dayshift nurse.
[2020-10-27] MEDS: BUDESONIDE 0.5 MG/2 ML AMPUL.NEB INH SCH ×2 (09:00→21:00)
[2020-10-27 10:01] LABS: ANION GAP 7 (5-15); CALCIUM 9.9 mg/dL (8.4-11.0); CHLORIDE 102 mmol/L (98-107); CREATININE 0.75 mg/dL (0.55-1.30); GLUCOSE 120 mg/dL (70-99); POTASSIUM 4.1 mmol/L (3.5-5.1); SODIUM SERUM 136 mmol/L (136-145); UREA NITROGEN, BLOOD 19 mg/dL (8-21)
[2020-10-27 10:35] LABS: C-REACTIVE PROTEIN QUANT 0.3 mg/dL (0-0.5)
[2020-10-27 12:16] VITALS: BP_SYST 118
[2020-10-27 12:45] VITALS: BP_SYST 140
--- NOTE | 2020-10-27 14:31 | NUR ---
[facility]/HCP CM [facility] SINCERE MEJIA CALLED RE: TO CHECK WHETHER PORTABLE O2 WAS DELIVERED. SHE ALSO INFORMED ME THAT HOME HEALTH WILL BE [facility] AND OXYGEN DELIVERY WILL BE DONE BY [facility]. I WAS ALSO ASKED TO FAX THE H/P TO HER.
--- NOTE | 2020-10-27 14:40 | NUR ---
Nutrition F/U RD reviewed pt's current EMR including diet Hx, physician notes, nursing notes, pertinent labs/meds/procedures, care trends, and care activity. Short note d/t high pt load. Current Diet Order/Nutrition Support: Regular diet w/ Glucerna TID x6 days Per EMR review, pt's BG have been between 109-163 mg/dl since 10/18, and PO intake average is 67% x16 meal records. Pt still benefits from liberalized regular diet at this time d/t suboptimal PO intakes during acute state. Current diet remains appropriate and encouragement is warranted to promote optimal nutrition. Pt is at moderate nutritional risk; RD to F/U within 3-5 days.
[2020-10-27 15:05] LABS: ERYTHROCYTE SEDIMENTATION RATE 22 MM/HR (0-20)
[2020-10-27 16:18] VITALS: BP_SYST 120
[2020-10-27 20:00] VITALS: BP_SYST 124
[2020-10-28] MEDS: CEFEPIME 1 GM in D5W 50 ML IV SCH ×3 (00:06→21:58)
[2020-10-28] MEDS: ASCORBIC ACID 500 MG TABLET PO SCH ×3 (00:06→21:58)
[2020-10-28] MEDS: ENOXAPARIN SODIUM 40 MG/0.4 ML SYRINGE SUBCUT SCH ×3 (00:07→22:04)
[2020-10-28 00:58] VITALS: BP_SYST 126
[2020-10-28] MEDS: ALBUTEROL MDI INHALATION 8 GM INH INH PRN ×2 (05:49→22:14)
--- NOTE | 2020-10-28 07:45 | NUR ---
am notes pt in bed. a/ox4. denies any pian or sob. atthis time. on 5 l nc saturation 91%. res even and unlabored.vitals stable. not in res distress. safety/fall precautions in place. bed locked and in low position bed alarm on. will conitnue to monitor
[2020-10-28 08:00] VITALS: BP_SYST 120
[2020-10-28 08:21] LABS: BASOPHILS % (AUTO) 0.2 % (0.0-2.0); EOSINOPHILS % (AUTO) 0.2 % (0.0-4.0); HEMATOCRIT 43.7 % (36-48); HEMOGLOBIN 14.8 g/dL (12.0-16.0); LYMPHOCYTES # (AUTO) 1.4 K/uL (1.0-5.5); LYMPHOCYTES % (AUTO) 13.9 % (20.5-51.5); MEAN CORPUSCULAR HEMOGLOBIN 32 pg (27-31); MEAN CORPUSCULAR HGB CONC 34 % (32-36); MEAN CORPUSCULAR VOLUME 96 fL (79.0-98.0); MONOCYTES # (AUTO) 0.7 K/uL (0.0-1.0); MONOCYTES % (AUTO) 6.8 % (1.7-9.3); NEUTROPHILS # (AUTO) 8.1 K/uL (1.8-7.7); NEUTROPHILS % (AUTO) 78.9 % (40.0-70.0); PLATELET COUNT (AUTO) 281 K/uL (130-430); RED BLOOD CELL COUNT(AUTO) 4.57 MIL/uL (4.2-6.2); RED CELL DISTRIBUTION WIDTH 13.4 % (9.0-15.0); WHITE BLOOD COUNT (AUTO) 10.2 K/uL (4.8-10.8)
[2020-10-28 08:45] LABS: ALANINE AMINOTRANSFERASE 43 U/L (12-78); ALBUMIN 2.7 g/dL (3.4-4.8); ANION GAP 8 (5-15); ASPARTATE AMINOTRANSFERASE 30 U/L (10-37); C-REACTIVE PROTEIN QUANT < 0.2 mg/dL (0-0.5); CALCIUM 9.8 mg/dL (8.4-11.0); CHLORIDE 97 mmol/L (98-107); CREATININE 0.69 mg/dL (0.55-1.30); GLUCOSE 119 mg/dL (70-99); SODIUM SERUM 131 mmol/L (136-145); TOTAL BILIRUBIN 0.7 mg/dL (0.0-1.0); UREA NITROGEN, BLOOD 23 mg/dL (8-21)
[2020-10-28] MEDS: BUDESONIDE 0.5 MG/2 ML AMPUL.NEB INH SCH (09:00)
[2020-10-28] MEDS: CHOLECALCIFEROL (VITAMIN D3) 5,000 UNIT TABLET PO SCH (09:34)
[2020-10-28] MEDS: DEXAMETHASONE SOD PHOSPHATE 10 MG/ML VIAL IVP SCH (09:34)
[2020-10-28 10:18] LABS: ERYTHROCYTE SEDIMENTATION RATE 24 MM/HR (0-20)
--- NOTE | 2020-10-28 12:30 | NUR ---
ROUNDS PT STABLE NOT IN ACUTE DISTRESS. SITTING IN CHAIR. KEPT COMFORTABLE. DENIES ANY PAIN OR SOB AT THIS TIME.WILL CONTINUE TO MONITOR
[2020-10-28 15:05] VITALS: BP_SYST 122
[2020-10-28 16:00] VITALS: BP_SYST 137
--- NOTE | 2020-10-28 17:49 | NUR ---
NOTIFIED PARTHA SEGURA THAT PT IS OFF MONITOR, NEEDS BATTERY CHANGE.
--- NOTE | 2020-10-28 19:01 | NUR ---
CLOSING NOTES pt in bed. a/ox4. denies any pAIN or sob. atthis time. res even and unlabored.vitals stable. not in res distress. safety/fall precautions in place. bed locked and in low position bed alarm on. call light within reach will give report to night nurse
[2020-10-28 20:00] VITALS: BP_SYST 130
[2020-10-29 00:30] VITALS: BP_SYST 134
[2020-10-29] MEDS: ALBUTEROL MDI INHALATION 8 GM INH INH PRN (06:05)
[2020-10-29 08:00] VITALS: BP_SYST 137
--- NOTE | 2020-10-29 08:00 | NUR ---
Initial note: Patient is alert, Oriented x4, denies any pain or discomfort at this time. She walks to the bath room by herself with a walker well with standing by assist. She has Voided and normal greenish stool x1.
[2020-10-29] MEDS: CHOLECALCIFEROL (VITAMIN D3) 5,000 UNIT TABLET PO SCH (08:52)
[2020-10-29] MEDS: ASCORBIC ACID 500 MG TABLET PO SCH ×2 (08:53→20:52)
[2020-10-29] MEDS: BUDESONIDE 0.5 MG/2 ML AMPUL.NEB INH SCH ×2 (09:00→21:00)
--- NOTE | 2020-10-29 10:23 | NUR ---
ID calls: has called and asked about patient's condition. states that the patient is cleared for DC home with Oxygen per ID.
[2020-10-29] MEDS: ENOXAPARIN SODIUM 40 MG/0.4 ML SYRINGE SUBCUT SCH ×2 (11:40→20:52)
[2020-10-29 11:47] VITALS: BP_SYST 128
--- NOTE | 2020-10-29 14:30 | NUR ---
Inform on the phone that clears patient for DC home with Oxygen and patient already has oxygen at home. Also inform him that patient wants to go home. MD has stated that he will check on that.
[2020-10-29 15:58] VITALS: BP_SYST 133
--- NOTE | 2020-10-29 18:38 | NUR ---
Closing note: Patient is stable , still no discharge order at this time. Patient seems to accept that she might not go home today. She is tolerates oral diet well with 1 normal BM.On Oxygen 4 L/M via NC, no sign of SOB.
[2020-10-29 19:30] VITALS: BP_SYST 125
[2020-10-30 00:30] VITALS: BP_SYST 123
--- NOTE | 2020-10-30 07:41 | NUR ---
rn opening note report was endorsed by night nurse. Patient is awake and alert sitting up in bed no signs of any distress, breathing is equal and non labored. patient was educated prosthodontist/educator light for assistance. call light is with her no other needs at this time.
[2020-10-30 08:00] VITALS: BP_SYST 136
[2020-10-30] MEDS: BUDESONIDE 0.5 MG/2 ML AMPUL.NEB INH SCH (09:00)
--- NOTE | 2020-10-30 09:30 | NUR ---
Medication Patients scheduled medication given per order. Patient is awake and alert sitting in bed no signs of any distress, breathing is equal and non labored. patient educated referral and information aide light, call light is with her. no other needs at this time.
[2020-10-30] MEDS: CHOLECALCIFEROL (VITAMIN D3) 5,000 UNIT TABLET PO SCH (09:33)
[2020-10-30] MEDS: ENOXAPARIN SODIUM 40 MG/0.4 ML SYRINGE SUBCUT SCH (09:33)
[2020-10-30] MEDS: ASCORBIC ACID 500 MG TABLET PO SCH (09:34)
[2020-10-30] MEDS ORDERED: APIX2.5T PO (10:50)
[2020-10-30] MEDS ORDERED: ALBMDI INH (10:50)
[2020-10-30 10:54] VITALS: BP_SYST 136
[2020-10-30] MEDS ORDERED: BUDE90AE IH (10:55)
--- NOTE | 2020-10-30 11:30 | NUR ---
Rn rounding Patient is awake and alert walking in bed. patient has no complaints at this time. patient has call light with her, educated to use for assistance. no other needs at this time.
[2020-10-30 12:00] VITALS: BP_SYST 130
[2020-10-30 12:50] VITALS: BP_SYST 135
--- NOTE | 2020-10-30 13:40 | NUR ---
discharge patient discharged per order. patients grandson picked up patient brought patients portable oxygen to hospital for drive home. patient and family member were educated on discharge plan with no further questions. educated on medication to pear picker. patient has all belongings with her. patient's iv catheter removed catheter intact. patient has no complaints at this time. no distress, noted. patient brought out to car via wheel chair.
[2020-10-30 16:00] VITALS: BP_SYST 132
== END 2020-10-30 13:40 | disposition home or self-care (01) | DRG 871 ==
LOC: SED 12:43 → STU 14:38 → SMU 10-30 10:58
PROVIDERS: ADMIT Internal Medicine Hospice and Palliative Medicine; ATTEND Internal Medicine Hospice and Palliative Medicine
PROC: XW033E5 Introduction of Remdesivir Anti-infective into Peripheral Vein, Percutaneous Approach, New Technology Group 5 (ICD-10-PCS; principal; 2020-10-18)
DX: A41.51 Sepsis due to Escherichia coli [E. coli] (principal); U07.1 COVID-19; J12.82 Pneumonia due to coronavirus disease 2019; J96.01 Acute respiratory failure with hypoxia; E87.1 Hypo-osmolality and hyponatremia; N39.0 Urinary tract infection, site not specified; A08.39 Other viral enteritis; N17.9 Acute kidney failure, unspecified; E87.6 Hypokalemia; R53.81 Other malaise; Z20.822 Contact with and (suspected) exposure to COVID-19; D69.6 Thrombocytopenia, unspecified; E11.65 Type 2 diabetes mellitus with hyperglycemia; E66.01 Morbid (severe) obesity due to excess calories; E88.09 Other disorders of plasma-protein metabolism, not elsewhere classified; Z79.01 Long term (current) use of anticoagulants; Z68.35 Body mass index [BMI] 35.0-35.9, adult; Z71.3 Dietary counseling and surveillance
CPT/HCPCS: 36415; 71045; 80048; 80053; 81000; 82728; 83605; 84484; 85025; 85379; 85651-TC; 86140; 87040-TC; 87086; 93005; 94640; 94760; 96365; 96366; 96372; 96375; 99291; G0378; J0456; J0692; J0696; J1100; J1650; J7050; J7060; J7626

== ENCOUNTER 2021-07-07 15:40 | Emergency (ER) | payer BC ==
[~2021-07-07 15:40] MED LIST: ALBMDI INH; APIX2.5T PO; BUDE90AE IH
[2021-07-07 16:27] VITALS: BP_SYST 127
--- NOTE | 2021-07-07 16:27 | NUR ---
Pt triaged in waiting area; awaiting MD eval/bed availability in main ED.
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
--- NOTE | 2021-07-07 17:22 | NUR ---
Per Dr Khoury, this poem writer placed orders for patient
--- NOTE | 2021-07-07 17:41 | NUR ---
Pt taken to radiology via wheelchair
[2021-07-07 19:41] VITALS: BP_SYST 127
--- NOTE | 2021-07-07 19:43 | NUR ---
Patient given written and verbal discharge instructions and verbalizes understanding. ER MD discussed with patient the results and treatment provided. Patient in stable condition. ID arm band removed. No Rx given. Patient educated on pain management and to follow up with PMD. Pain Scale 2/10. Opportunity for questions provided and answered. Medication side effect fact sheet provided.
== END 2021-07-07 19:41 | disposition home or self-care (01) ==
LOC: SED 15:40
DX: S93.602A Unspecified sprain of left foot, initial encounter (principal); W17.89XA Other fall from one level to another, initial encounter; Y93.89 Activity, other specified; Y92.89 Other specified places as the place of occurrence of the external cause; Y99.8 Other external cause status
CPT/HCPCS: 99283